=== PATIENT | male | born 1980 ===

== ENCOUNTER 2021-04-11 22:38 | Emergency (ER) | payer SELFPAY ==
[~2021-04-11] VITALS: Ht 185.4 cm; Wt 104.5 kg
[2021-04-11 23:36] LABS: BASOPHILS % (AUTO) 1 % (0-1); EOSINOPHILS % (AUTO) 1 % (1-7); LYMPHOCYTES % (AUTO) 46 % (22-44); MEAN CORPUSCULAR HEMOGLOBIN 31.3 pg (27.5-34.5); MEAN CORPUSCULAR HGB CONC 35.4 g/dL (33.2-36.2); MEAN PLATELET VOLUME 8.2 fL (7.4-10.4); MONOCYTES % (AUTO) 6 % (2-9); NEUTROPHILS % (AUTO) 47 % (42-75); PLATELET COUNT 220 x10^3/uL (130-400); RED BLOOD COUNT 4.63 x10^6/uL (4.38-5.82); RED CELL DISTRIBUTION WIDTH 12.6 % (9.4-14.8)
--- NOTE | 2021-04-11 23:36 | NUR ---
PT. TO BR WITH STEADY GAIT TO PROVIDE URINE SAMPLE.
[2021-04-11 23:49] LABS: ALBUMIN 3.1 g/dL (3.4-5.0); ANION GAP 12 mmol/L (5-15); CALCIUM 7.5 mg/dL (8.5-10.1); CHLORIDE 94 mmol/L (98-107)
[2021-04-11 23:53] LABS: ALANINE AMINOTRANSFERASE 36 U/L (12-78); ALKALINE PHOSPHATASE 84 U/L (45-117); BILIRUBIN,TOTAL 0.6 mg/dL (0.2-1.0); TOTAL PROTEIN 7.2 g/dL (6.4-8.2)
[2021-04-11 23:56] LABS: SALICYLATE LEVEL < 1.7 mg/dL (2.8-20.0)
[2021-04-11] MEDS ORDERED: ONDANSETRON 2MG/ML, 2ML ONE (23:58)
[2021-04-12] MEDS ORDERED: ONDANSETRON 2MG/ML, 2ML IVPush ONE
[2021-04-12 00:06] LABS: AMPHETAMINE SCREEN, URINE Negative (Negative); BARBITURATE SCREEN, URINE Negative (Negative); BENZODIAZEPINE SCREEN, URINE Negative (Negative); CANNABINOID SCREEN, URINE Negative (Negative); COCAINE SCREEN, URINE Negative (Negative); METHADONE SCREEN, URINE Negative (Negative); OPIATE SCREEN, URINE Negative (Negative)
--- NOTE | 2021-04-12 00:18 | NUR ---
PT. CONTINUES TO DENY ANY SI/HI. STATES "I JUST NEED SOME INSULIN AND THEN I AM READY TO LEAVE."
--- NOTE | 2021-04-12 00:19 | NUR ---
PT. ADMITS TO DRINKING 1/5TH OF VODKA TODAY AND STATES HE DRINKS LIKE THIS EVERYDAY.
[2021-04-12] MEDS ORDERED: SODIUM CHLORIDE 0.9% 1,000ML IVBOLUS ONE (01:00)
[2021-04-12] MEDS ORDERED: INSULIN REGULAR 100 UNITS/ML, 3ML VIAL SQ-INSULIN ONE (01:00)
[2021-04-12] MEDS ORDERED: INSULIN SINGLE DOSE, ER ONE (01:21)
--- NOTE | 2021-04-12 02:59 | NUR ---
PT. AMBULATORY DOWN SONG TO BR WITH STEADY GAIT. NO DISTRESS NOTED.
--- NOTE | 2021-04-12 03:38 | NUR ---
DR. PROCTOR IN TO EVAL PT. AND STEVO DISCUSS POC. PT. CONTINUES TO DENY ANY SI/HI AND IS REQUESTING TO GO HOME.
[2021-04-12 04:04] VITALS: BP 105/70
== END 2021-04-12 04:09 | disposition home or self-care (01) ==
LOC: ED 23:59 → EDIP 04-12 02:15 → INTOOBSV 04-12 02:15 → UNDOADMOB 04-12 02:15 → ED 04-12 04:09
DX: F33.9 Major depressive disorder, recurrent, unspecified (principal); E11.65 Type 2 diabetes mellitus with hyperglycemia; F17.200 Nicotine dependence, unspecified, uncomplicated
CPT/HCPCS: 36415; 80053; 80299; 80307; 80320; 80329; 82962; 85025; 96361; 96374; 99283; J1815; J2405; J7030; G0480